=== PATIENT | male | born 1980 | race Caucasian/White ===

== ENCOUNTER 2025-09-29 05:22 | Emergency (ER) | payer OTHER, SELFPAY ==
[2025-09-29 05:24] VITALS: BP 149/81
[2025-09-29 05:26] VITALS: BP 149/81
[2025-09-29 05:37] VITALS: BMI 30.8
--- NOTE | 2025-09-29 05:40 | ED.GENMED ---
History of Present Illness
<Kahlil Brennan Jr., PA-C - Last Filed: 09/30/25 01:26>
General
Chief Complaint: Breathing Problem
Source: patient
Exam Limitations: none
Time Seen by Provider: 09/29/25 05:25
Nursing documentation reviewed up to this point in time: agreed with
History of Present Illness
History of Present Illness:
45-year-old male patient with a history of high blood pressure currently on losartan presenting to the emergency department today with concerns of an episode of shortness of breath chest pain when he went to the bathroom earlier this morning roughly
2 hours prior to arrival to the emergency department. He took 162 mg of aspirin. Patient ongoing symptoms as well as lightheadedness no nausea vomiting no diaphoresis. Denies any recent trauma surgery mobilization history of blood clots or leg
swelling. No estrogen product usage.
Review of Systems
<Kahlil Brennan Jr., PA-C - Last Filed: 09/30/25 01:26>
Review of Systems
Allergies reviewed?: Yes
All Other Systems: ROS reviewed and negative except as documented in HPI and ROS
Phy Exam
<Kahlil Brennan Jr., PA-C - Last Filed: 09/30/25 01:26>
Physical Exam
Physical Exam:
GENERAL: Alert , in no apparent distress
EYE: pupils equal and reactive
NECK: Supple, no significant adenopathy.
ENT: o/p clr, mmm.
CARDIAC: Regular rate and rhythm .
LUNGS: Clear breath sounds bilaterally, no acute respiratory distress, no wheezes/rales/rhonchi
ABDOMEN: Soft, without focal tenderness, no r/g, no cvat
NEUROLOGICAL: Alert and oriented, no focal neuro deficits
SKIN: Warm and dry, skin intact.
MUSCULOSKELETAL: No edema, well perfused.
PSYCH: Normal and appropriate interaction.
Course
<Kahlil Brennan Jr., PA-C - Last Filed: 09/30/25 01:26>
Orders/Labs/Results
Orders:
Orders
09/29/25
Electrocardiogram (*1) Stat
Comment: DONE EMR
09/29/25 05:24
Electrocardiogram (*1) Urgent
Reason for Study: Chest Pain
EKG- Treatment ONCE
09/29/25 05:35
Chest X-ray Portable [CR Chest Portable - 1 View] Urgent
Comment:
Reason For Exam: cp/sob
Reason Study Needs to be Portable: Unable to Transport
09/29/25 05:36
Add On- LAB Urgent
Tests Added?: TSH free t4, magnesium level
09/29/25 05:41
Aspirin 162 mg PO NOW STA
09/29/25 05:42
Complete Blood Count/With Diff Urgent
Comprehensive Metabolic Panel Urgent
Magnesium Urgent
TSH Reflex To Free T4 Urgent
Comment: ADD ON
Troponin I Urgent
09/29/25 05:48
Aspirin Chewable [Low Strength Aspirin] 162 mg .ROUTE .STK-MED ONE
09/29/25 05:50
Aspirin Chewable [Low Strength Aspirin] 81 mg PO NOW STA
09/29/25 05:51
Aspirin Chewable [Low Strength Aspirin] 81 mg PO NOW STA
09/29/25 08:44
Troponin I Urgent
Abnormal Lab Results
09/29/25
05:42
Hct 53.0 H %
(39.0-52.0)
Absolute Lymphs (auto) 3.5 H 10^3/uL
(1.2-3.4)
Absolute Monos (auto) 0.7 H 10^3/uL
(0.1-0.6)
Neutrophils % 36.3 L %
(42.2-75.2)
Monocytes % 9.6 H %
(1.7-9.3)
Chloride 108 H mmol/L
(98-107)
Glucose 102 H mg/dl
(70-99)
09/29/25 05:42
09/29/25 05:42
Vital Signs
Initial and Last Documented VS:
Initial Vital Signs
Pulse Resp BP
82 14 149/81
09/29/25 05:24 09/29/25 05:24 09/29/25 05:24
Last Documented Vital Signs
Temp Pulse Resp BP Pulse Ox
98.0 F 63 14 141/85 96
09/29/25 05:26 09/29/25 09:45 09/29/25 09:45 09/29/25 08:00 09/29/25 09:45
<Jorge Christianson, DO - Last Filed: 09/29/25 06:21>
Orders/Labs/Results
Orders:
Orders
09/29/25
Electrocardiogram (*1) Stat
Comment: DONE EMR
09/29/25 05:24
Electrocardiogram (*1) Urgent
Reason for Study: Chest Pain
EKG- Treatment ONCE
09/29/25 05:35
Chest X-ray Portable [CR Chest Portable - 1 View] Urgent
Comment:
Reason For Exam: cp/sob
Reason Study Needs to be Portable: Unable to Transport
09/29/25 05:36
Add On- LAB Urgent
Tests Added?: TSH free t4, magnesium level
09/29/25 05:41
Aspirin 162 mg PO NOW STA
09/29/25 05:42
Complete Blood Count/With Diff Urgent
Comprehensive Metabolic Panel Urgent
Magnesium Urgent
TSH Reflex To Free T4 Urgent
Comment: ADD ON
Troponin I Urgent
09/29/25 05:48
Aspirin Chewable [Low Strength Aspirin] 162 mg .ROUTE .STK-MED ONE
09/29/25 05:50
Aspirin Chewable [Low Strength Aspirin] 81 mg PO NOW STA
09/29/25 05:51
Aspirin Chewable [Low Strength Aspirin] 81 mg PO NOW STA
09/29/25 08:44
Troponin I Urgent
Abnormal Lab Results
09/29/25
05:42
Hct 53.0 H %
(39.0-52.0)
Absolute Lymphs (auto) 3.5 H 10^3/uL
(1.2-3.4)
Absolute Monos (auto) 0.7 H 10^3/uL
(0.1-0.6)
Neutrophils % 36.3 L %
(42.2-75.2)
Monocytes % 9.6 H %
(1.7-9.3)
Chloride 108 H mmol/L
(98-107)
Glucose 102 H mg/dl
(70-99)
09/29/25 05:42
09/29/25 05:42
Vital Signs
Initial and Last Documented VS:
Initial Vital Signs
Pulse Resp BP
82 14 149/81
09/29/25 05:24 09/29/25 05:24 09/29/25 05:24
Last Documented Vital Signs
Temp Pulse Resp BP Pulse Ox
98.0 F 63 14 141/85 96
09/29/25 05:26 09/29/25 09:45 09/29/25 09:45 09/29/25 08:00 09/29/25 09:45
Ajitlt;Malcolm More PA-C - Last Filed: 09/29/25 09:30>
Orders/Labs/Results
Orders:
Orders
09/29/25
Electrocardiogram (*1) Stat
Comment: DONE EMR
09/29/25 05:24
Electrocardiogram (*1) Urgent
Reason for Study: Chest Pain
EKG- Treatment ONCE
09/29/25 05:35
Chest X-ray Portable [CR Chest Portable - 1 View] Urgent
Comment:
Reason For Exam: cp/sob
Reason Study Needs to be Portable: Unable to Transport
09/29/25 05:36
Add On- LAB Urgent
Tests Added?: TSH free t4, magnesium level
09/29/25 05:41
Aspirin 162 mg PO NOW STA
09/29/25 05:42
Complete Blood Count/With Diff Urgent
Comprehensive Metabolic Panel Urgent
Magnesium Urgent
TSH Reflex To Free T4 Urgent
Comment: ADD ON
Troponin I Urgent
09/29/25 05:48
Aspirin Chewable [Low Strength Aspirin] 162 mg .ROUTE .STK-MED ONE
09/29/25 05:50
Aspirin Chewable [Low Strength Aspirin] 81 mg PO NOW STA
09/29/25 05:51
Aspirin Chewable [Low Strength Aspirin] 81 mg PO NOW STA
09/29/25 08:44
Troponin I Urgent
Abnormal Lab Results
09/29/25
05:42
Hct 53.0 H %
(39.0-52.0)
Absolute Lymphs (auto) 3.5 H 10^3/uL
(1.2-3.4)
Absolute Monos (auto) 0.7 H 10^3/uL
(0.1-0.6)
Neutrophils % 36.3 L %
(42.2-75.2)
Monocytes % 9.6 H %
(1.7-9.3)
Chloride 108 H mmol/L
(98-107)
Glucose 102 H mg/dl
(70-99)
09/29/25 05:42
09/29/25 05:42
Vital Signs
Initial and Last Documented VS:
Initial Vital Signs
Pulse Resp BP
82 14 149/81
09/29/25 05:24 09/29/25 05:24 09/29/25 05:24
Last Documented Vital Signs
Temp Pulse Resp BP Pulse Ox
98.0 F 63 14 141/85 96
09/29/25 05:26 09/29/25 09:45 09/29/25 09:45 09/29/25 08:00 09/29/25 09:45
<Kahlil Brennan Jr., PA-C - Last Filed: 09/30/25 01:26>
MDM/Problems Addressed
MDM/Problems Addressed:
45-year-old male presenting to the emergency department today with concerns of chest heaviness associated shortness of breath that occurred 2 hours prior to arrival after going to the bathroom earlier this morning. Claims his symptoms have
improved. They were ongoing at home which prompted them to call EMS. He did take 162 of aspirin prior to arrival. On arrival here heart rate in the 70s to 80s with frequent PVCs. Otherwise no specific signs of ischemia other vital signs normal.
Heart and lung sounds are normal. Patient is PERC negative and very low risk for PE.
<Kahlil Brennan Jr., PA-C - Last Filed: 09/30/25 01:26>
*Pulse Oximetry
SaO2: 100
Oxygen Mode of Delivery: Room air
<Malcolm More PA-C - Last Filed: 09/29/25 09:30>
*Pulse Oximetry
Patient hypoxic: no
*Critical Care Note
Total Time (30-74mins, 75-104mins- exclusive of procedures): Not Applicable
<Malcolm More PA-C - Last Filed: 09/29/25 09:30>
Update Note
Update Note:
Assumed care of patient pending troponin and repeat troponin. Initial and repeat both undetectable. Patient remains symptom-free here. He does exhibit ectopy in the form of PVCs. No indication for admission but will follow-up with cardiology.
ED Attending Note
<Kahlil Brennan Jr., PA-C - Last Filed: 09/30/25 01:26>
-
Portions of this chart may have been created with voice recognition software.� Occasional wrong word or��sound alike� substitutions may have occurred due to the inherent limitations of voice recognition software.
<Jorge Christianson DO - Last Filed: 09/29/25 06:21>
ED Attending Note
Patient seen and examined by attending physician: Yes
I performed the substantive portion of visit, reviewed & personally made and approve the management plan that is documented in note by myself or BRIDGER.: Yes
ED Attending Note:
I evaluated patient at bedside. The patient does have significant amount of ventricular ectopy on the monitor. However his heart rate is around 60 therefore we will hold off on beta-marj. He is normotensive. He did have some chest discomfort
when this all started. Will check two troponins. There is no ischemic findings on EKG. He currently senses no abnormality and appears very comfortable despite ongoing ventricular ectopy on the monitor. He reportedly had ventricular trigeminy
earlier.
Discharge Plan
Departure
Patient Disposition: Home (Routine Discharge)
Date of Disposition: 09/29/25
Time of Disposition: 09:29
Patient with high blood pressure during this ER visit?: No
Discharge Problem:
Chest pain, Frequent PVCs
Instructions: *[facility] Heart Failure Instructions
Referrals:
Good Crowder MD [Family Provider, Internal Medicine]
Activity Restrictions/Additional Instructions:
Please return here for worsening symptoms. Follow-up with cardiology otherwise
Interventions
Interventions:
*Risk Screen - Suicide Last Done: 09/29/25 05:26
*General Assessment Last Done: 09/29/25 05:26
*Neglect/Abuse Screening Last Done: 09/29/25 05:26
*ED- Fall Risk Assessment Last Done: 09/29/25 05:37
*ED COVID-19 Vaccine History Last Done: 09/29/25 05:37
*ED Influenza Vaccine History Last Done: 09/29/25 05:37
*Nursing Disposition Last Done: 09/29/25 09:53
ED- Cardiac Assessment Last Done: 09/29/25 05:37
ED- Pulmonary Assessment Last Done: 09/29/25 05:37
Discharge Date and Time
Discharge Date/Time: 09/29/25 09:54
Print Language: ESTONIAN
[2025-09-29] MEDS: LOW STRENGTH ASPIRIN 81 MG PO ×2 (05:50→05:51)
[2025-09-29 06:07] LABS: ALT (SGPT) 22 U/L (0-50); AST (SGOT) 22 U/L (17-59); Albumin 4.7 g/dl (3.5-5.0); Alkaline Phosphatase 58 U/L (38-126); Blood Urea Nitrogen 14 mg/dl (9-20); Calcium 9.9 mg/dl (8.4-10.2); Carbon Dioxide 23 mmol/L (22-30); Chloride 108 mmol/L (98-107); Estimated Creatinine Clearance > 125 ml/min; Glucose 102 mg/dl (70-99); Magnesium 2.1 mg/dl (1.6-2.3); Potassium 4.0 mmol/L (3.5-5.1); Sodium 142 mmol/L (135-145); Total Protein 7.8 g/dl (6.3-8.2); eGFR > 60.00
[2025-09-29 06:15] LABS: Hematocrit 53.0 % (39.0-52.0); Hemoglobin 17.5 g/dL (13.0-18.0); Mean Corp Hgb Conc. 33.0 g/dL (33.0-37.0); Mean Corpuscular Volume 87.7 fL (80.0-94.0); Platelet Count 386 10^3/uL (130-400); Red Cell Dist. Width 12.5 % (11.5-14.5)
[2025-09-29 06:26] LABS: Troponin I < 0.012 ng/ml
[2025-09-29 07:00] VITALS: BP 126/84
[2025-09-29 07:30] LABS: Nucleated Red Blood Cells % 0 % (-)
[2025-09-29 08:00] VITALS: BP 141/85
[2025-09-29 09:14] LABS: Troponin I < 0.012 ng/ml
== END 2025-09-29 09:54 | disposition home or self-care (01) ==
LOC: EMR 05:22
PROVIDERS: Physician Assistant; EMERGENCY PHYSICIAN Emergency Medicine; FAMILY PHYSICIAN Internal Medicine
DX: I49.3 Ventricular premature depolarization (principal); I10 Essential (primary) hypertension
CPT/HCPCS: 99284; 71045; 80053; 83735; 84443; 84484; 85025; 93005

== ENCOUNTER → 2025-10-21 09:17 | Outpatient (REF) | payer OTHER, SELFPAY | LOC: HWRCS 09:17 | PROVIDERS: ATTENDING PHYSICIAN Internal Medicine Cardiovascular Disease; FAMILY PHYSICIAN Internal Medicine | DX: R06.02 Shortness of breath (principal) | CPT/HCPCS: 93306 ==

== ENCOUNTER → 2025-10-24 09:37 | Outpatient (REF) | payer OTHER, SELFPAY | LOC: RCS 09:37 | PROVIDERS: ATTENDING PHYSICIAN Internal Medicine Cardiovascular Disease; FAMILY PHYSICIAN Internal Medicine | DX: R07.89 Other chest pain (principal) | CPT/HCPCS: 93017 ==